=== PATIENT | male | born 1965 | race African-American/Black ===

== ENCOUNTER 2019-11-25 16:25 | Emergency (ER) | payer SELFPAY ==
--- NOTE | 2019-11-25 16:49 | ER ---
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 States, "I woke ca1 up at 0200 today and it has been like this". Denies pain. Denies injury. Coronavirus screen: Client denies travel out of the [place] in the last 14 days. At this time, the client does not indicate any symptoms associated with coronavirus-19. Ebola Screen: Patient negative for fever greater than or equal to 101.5 degrees Fahrenheit, and additional compatible Ebola Virus Disease symptoms Patient denies exposure to infectious person. Patient denies travel to an Ebola-affected area in the 21 days before illness onset. No symptoms or risks identified at this time. Initial Sepsis Screen: Does the patient meet any 2 criteria? No. Patient's initial sepsis screen is negative. Does the patient have a suspected source of infection? No. Patient's initial sepsis screen is negative. Risk Assessment: Do you want to hurt yourself or someone else? Patient reports no desire to harm self or others. Onset of symptoms was November 25, 2019 at 02:00. 16:38 Method Of Arrival: Ambulatory ca1 16:38 Acuity: HUANG 4 ca1 Triage Assessment: 16:41 General: Appears in no apparent distress. comfortable, Behavior is calm, cooperative, ca1 appropriate for age. Pain: Denies pain. EENT: No signs and/or symptoms were reported regarding the EENT system. Neuro: Level of Consciousness is awake, alert, obeys commands. Derm: Skin is intact, is healthy with good turgor, Skin is pink, warm \\T\\ dry. Musculoskeletal: Circulation, motion, and sensation intact. Capillary refill < 3 seconds, Range of motion: intact in all extremities. Historical: - Allergies: 16:41 No Known Allergies; ca1 - Home Meds: 16:41 None [Active]; ca1 - PMHx: 16:41 None; ca1 - PSHx: 16:41 None; ca1 - Immunization history:: Adult Immunizations up to date. - Social history:: Smoking status: Patient denies any tobacco usage or history of. Screenin:42 Abuse screen: Denies threats or abuse. Denies injuries from another. Nutritional ca1 screening: No deficits noted. Tuberculosis screening: No symptoms or risk factors identified. Fall Risk None identified. Assessment: 16:42 Reassessment: See triage assessment. ca1 Vital Signs: 16:38 BP 149 / 77; Pulse 60; Resp 17 S; Temp 98.4(O); Pulse Ox 100% on R/A; Weight 88.45 kg ca1 (R); Height 6 ft. 7 in. (200.66 cm) (R); 16:38 Body Mass Index 21.97 (88.45 kg, 200.66 cm) ca1 ED Course: 16:28 Patient arrived in ED. mr 16:37 [facility]. snw 16:37 Donald Richter MD is Attending Physician. snw 16:40 Triage completed. ca1 16:41 Arm band placed on right wrist. ca1 16:42 Patient has correct armband on for positive identification. Bed in low position. Call ca1 light in reach. Side rails up X 1. Pulse ox on. NIBP on. 16:48 Chelsy Mota, RN is Primary Nurse. ca1 16:54 Patient did not have IV access during this emergency room visit. Velcro wrist splint ca1 applied to right wrist. 16:55 No provider procedures requiring assistance completed. ca1 Administered Medications: No medications were administered Outcome: 16:48 Discharge ordered by . snw 16:59 Discharged to home ambulatory. ca1 16:59 Condition: stable 16:59 Discharge instructions given to patient, Instructed on discharge instructions, follow up and referral plans. medication usage, Demonstrated understanding of instructions, follow-up care, medications, Prescriptions given X 1. 16:59 Patient left the ED. ca1 Signatures: Radha Barrett FNP-C BLANKET MAKER-Csnw Deanna Layne mr Chelsy Mota, RN RN ca1
--- NOTE | 2019-11-25 16:49 | EDPHYS ---
Physician Documentation [facility] Name: Nj Urbina Age: 54 yrs Sex: Male : 1965 Arrival Date: 11/25/2019 Time: 16:28 Bed 14 Private MD: ED Physician Donald Richter HPI: 11/24 16:52 This 54 yrs old Black Male presents to ER via Ambulatory with complaints of Hand snw Problem. 16:52 Onset: The symptoms/episode began/occurred suddenly, this morning. Associated signs and snw symptoms: The patient has no apparent associated signs or symptoms. Modifying factors: The patient symptoms are alleviated by nothing, the patient symptoms are aggravated by nothing. The patient has not experienced similar symptoms in the past. The patient has not recently seen a physician, and does not have an established primary care provider. Historical: - Allergies: 16:41 No Known Allergies; ca1 - Home Meds: 16:41 None [Active]; ca1 - PMHx: 16:41 None; ca1 - PSHx: 16:41 None; ca1 - Immunization history:: Adult Immunizations up to date. - Social history:: Smoking status: Patient denies any tobacco usage or history of. ROS: 16:52 Constitutional: Negative for fever, chills, and weight loss, Eyes: Negative for injury, snw pain, redness, and discharge, ENT: Negative for injury, pain, and discharge, Neck: Negative for injury, pain, and swelling, Cardiovascular: Negative for chest pain, palpitations, and edema, Respiratory: Negative for shortness of breath, cough, wheezing, and pleuritic chest pain, Abdomen/GI: Negative for abdominal pain, nausea, vomiting, diarrhea, and constipation, Back: Negative for injury and pain, : Negative for injury, bleeding, discharge, and swelling, MS/Extremity: Negative for injury and deformity, pt states he cannot straighten his wrist since this am. No pain Skin: Negative for injury, rash, and discoloration, Neuro: Negative for headache, weakness, numbness, tingling, and seizure. Exam: 16:51 Constitutional: This is a well developed, well nourished patient who is awake, alert, snw and in no acute distress. Head/Face: Normocephalic, atraumatic. Eyes: Pupils equal round and reactive to light, extra-ocular motions intact. Lids and lashes normal. Conjunctiva and sclera are non-icteric and not injected. Cornea within normal limits. Periorbital areas with no swelling, redness, or edema. ENT: Nares patent. No nasal discharge, no septal abnormalities noted. Tympanic membranes are normal and external auditory canals are clear. Oropharynx with no redness, swelling, or masses, exudates, or evidence of obstruction, uvula midline. Mucous membranes moist. Neck: Trachea midline, no thyromegaly or masses palpated, and no cervical lymphadenopathy. Supple, full range of motion without nuchal rigidity, or vertebral point tenderness. No Meningismus. Chest/axilla: Normal chest wall appearance and motion. Nontender with no deformity. No lesions are appreciated. Cardiovascular: Regular rate and rhythm with a normal S1 and S2. No gallops, murmurs, or rubs. Normal PMI, no JVD. No pulse deficits. Respiratory: Lungs have equal breath sounds bilaterally, clear to auscultation and percussion. No rales, rhonchi or wheezes noted. No increased work of breathing, no retractions or nasal flaring. Abdomen/GI: Soft, non-tender, with normal bowel sounds. No distension or tympany. No guarding or rebound. No evidence of tenderness throughout. Back: No spinal tenderness. No costovertebral tenderness. Full range of motion. Skin: Warm, dry with normal turgor. Normal color with no rashes, no lesions, and no evidence of cellulitis. Neuro: Awake and alert, GCS 15, oriented to person, place, time, and situation. Cranial nerves II-XII grossly intact. Motor strength 5/5 in all extremities. Sensory grossly intact. Cerebellar exam normal. Normal gait. Psych: Awake, alert, with orientation to person, place and time. Behavior, mood, and affect are within normal limits. 16:51 Musculoskeletal/extremity: Extremities: grossly normal except: noted in the dorsal aspect of right wrist: decreased ROM, unable to extend right hand since awakening this am. Vital Signs: 16:38 BP 149 / 77; Pulse 60; Resp 17 S; Temp 98.4(O); Pulse Ox 100% on R/A; Weight 88.45 kg ca1 (R); Height 6 ft. 7 in. (200.66 cm) (R); 16:38 Body Mass Index 21.97 (88.45 kg, 200.66 cm) ca1 MDM: 16:45 Patient medically screened. snw 16:50 Data reviewed: vital signs, nurses notes. Data interpreted: Pulse oximetry: on room air snw is 100 %. Interpretation: normal. Counseling: I had a detailed discussion with the patient and/or guardian regarding: the historical points, exam findings, and any diagnostic results supporting the discharge/admit diagnosis, the need for outpatient follow up, to return to the emergency department if symptoms worsen or persist or if there are any questions or concerns that arise at home. Special discussion: I have referred the patient to see his PCP for further evaluation of high blood pressure. Based on the history and exam findings, there is no indication for further emergent testing or inpatient evaluation. I discussed with the patient/guardian the need to see the orthopedic surgeon for further evaluation of the symptoms. I discussed with the patient/guardian the need to see the primary care provider for further evaluation of the symptoms. 11/24 16:47 Order name: Wrist Splint: right; Complete Time: 16:54 snw Administered Medications: No medications were administered Disposition: 11/25/19 16:48 Discharged to Home. 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 - Condition is Stable. - Discharge Instructions: Radial Nerve Palsy, Wrist Splint. - Prescriptions for Mobic 7.5 mg Oral Tablet - take 1 tablet by ORAL route once daily take with food; 20 tablet. - Medication Reconciliation Form, Thank You Letter, Antibiotic Education, Prescription Opioid Use form. - Follow up: Emergency Department; When: As needed; Reason: Worsening of condition. Follow up: Private Physician; When: 7 - 10 days; Reason: Re-evaluation by your physician. Addendum: 11/28/2019 08:22 Co-signature as Attending Physician, Donald Richter MD I agree with the assessment and k dr plan of care. Signatures: Donald Richter MD MD kdr Waters, Shelly, REHABILITATION SPECIALIST-C REHABILITATION SPECIALIST-Csnw Chelsy Mota RN RN ca1 Corrections: (The following items were deleted from the chart) 11/24 16:59 16:48 11/25/2019 16:48 Discharged to Home. Impression: Injury of radial nerve at wrist ca1 and hand level of right arm. Condition is Stable. Forms are Medication Reconciliation Form, Thank You Letter, Antibiotic Education, Prescription Opioid Use. Follow up: Emergency Department; When: As needed; Reason: Worsening of condition. Follow up: Private Physician; When: 7 - 10 days; Reason: Re-evaluation by your physician. snw
[2019-11-25 17:13] VITALS: BP 149/77; TEMP 98.4; O2SAT 100
== END 2019-11-25 16:59 | disposition home or self-care (01) ==
LOC: ER 16:25
DX: S64.21XA Injury of radial nerve at wrist and hand level of right arm, initial encounter (principal); X58.XXXA Exposure to other specified factors, initial encounter; Y93.9 Activity, unspecified; Y92.9 Unspecified place or not applicable; Y99.9 Unspecified external cause status
CPT/HCPCS: 99283

== ENCOUNTER 2020-02-17 03:20 | Emergency (ER) | payer SELFPAY ==
[2020-02-17] MEDS ORDERED: LIDOCAINE 1% MPF 30 ML VIAL ONE (03:39)
[2020-02-17] MEDS ORDERED: NA CHLORIDE 0.9% 0 ML ONE ×2 (03:41→03:50)
[2020-02-17] MEDS ORDERED: LIDOCAINE 1% W/EPI 1:100,000 MDV 50 ML VIAL ONE (03:41)
[2020-02-17 03:46] LABS: Absolute Lymphocytes (CBC) 1.4 K/uL (0.7-4.9); Basophils % 1.7 % (0-1.3); Hematocrit 35.1 % (39.6-49.0); Lymphocytes % 37.8 % (15.3-44.8); RBC Red Blood Cell Count 3.94 M/uL (4.33-5.43)
[2020-02-17] MEDS ORDERED: CEFAZOLIN/SWI 1gm 2 GM/20 ML SYR ONE (03:50)
[2020-02-17] MEDS ORDERED: THIAMINE 200 MG/2 ML INJ ONE (03:50)
[2020-02-17 03:51] LABS: Protime INR 0.91
[2020-02-17] MEDS ORDERED: TETANUS & DIPHTHERIA TOX,ADULT 0.5 ML VIAL ONE (03:51)
[2020-02-17 04:06] LABS: ALT/SGPT 22 U/L (12-78); AST/SGOT 35 U/L (15-37); Albumin 3.6 g/dL (3.4-5.0); Alkaline Phosphatase 68 U/L (45-117); BUN Blood Urea Nitrogen 9 mg/dL (7-18); Bicarbonate 25 mmol/L (21-32); Bilirubin Direct 0.1 mg/dL (0-0.2); Bilirubin Total 0.2 mg/dL (0.2-1.0); Glucose Level 96 mg/dL (74-106); Magnesium 2.3 mg/dL (1.8-2.4); NT PRO-BNP 189 pg/mL (<125); Potassium 3.9 mmol/L (3.5-5.1); Protein, Total 7.7 g/dL (6.4-8.2); Sodium Level 138 mmol/L (136-145); Troponin (Emerg Dept Use Only) < 0.02 ng/mL (0.0-0.045)
[2020-02-17] MEDS ORDERED: NA CHLORIDE 0.9% 2,000 ML ONE (04:20)
--- NOTE | 2020-02-17 05:59 | ER ---
Nurse's Notes [facility] Name: Nj Urbina Age: 54 yrs Sex: Male : 1965 Arrival Date: 02/17/2020 Time: 03:23 Bed 16 Private MD: Diagnosis: Fall due to bumping against object;Laceration without foreign body of other part of head-scalp, ear, forehead, right lower eyelid;Hypotension-resolved;Alcohol abuse with intoxication;Acute sinusitis Presentation: 02/16 03:33 Coronavirus screen: Client denies travel out of the [place] in the last 14 days. At this sg time, the client does not indicate any symptoms associated with coronavirus-19. Ebola Screen: Patient negative for fever greater than or equal to 101.5 degrees Fahrenheit, and additional compatible Ebola Virus Disease symptoms Patient denies exposure to infectious person. Patient denies travel to an Ebola-affected area in the 21 days before illness onset. No symptoms or risks identified at this time. Complicating Factors: laceration and injury to scalp and face. Initial Sepsis Screen: Does the patient meet any 2 criteria? No. Patient's initial sepsis screen is negative. Does the patient have a suspected source of infection? No. Patient's initial sepsis screen is negative. Risk Assessment: Do you want to hurt yourself or someone else? Patient reports no desire to harm self or others. Onset of symptoms was February 17, 2020. Care prior to arrival: None. Transition of care: patient was not received from another setting of care. 03:33 Acuity: HUANG 2 sg 03:33 Method Of Arrival: Wheelchair sg 03:33 Chief complaint: Patient states: while I am going up on a stairs I fell down and hit my [facility] head. 03:33 Care prior to arrival: None. rr5 03:35 Mechanism of Injury: Fall down steps. Trauma event details: Injury occurred in the [address], Injury occurred: at home. Injury occurred: February 17, 2020. Trauma Activation: Alert Physician: ED Physician; Name: ; Notified At: 03:35; Arrived At: 03:35 Physician: General Surgeon; Name: ; Notified At: 03:45; Arrived At: Physician: Radiology; Name: rhea; Notified At: 03:45; Arrived At: 03:47 Physician: Respiratory; Name: ; Notified At: 03:45; Arrived At: Physician: Lab; Name: ; Notified At: 03:45; Arrived At: Historical: - Allergies: 03:24 No Known Allergies; sg - Home Meds: 03:25 None [Active]; sg - PMHx: 03:25 None; sg - PSHx: 03:24 None; sg - Immunization history:: Adult Immunizations not up to date. - Social history:: Smoking status: Patient denies any tobacco usage or history of. - Immunization history: Last tetanus immunization: unknown. - Family history:: not pertinent. Screenin:30 Abuse screen: Denies threats or abuse. Denies injuries from another. Nutritional rr5 screening: No deficits noted. Tuberculosis screening: No symptoms or risk factors identified. Fall Risk Fall in past 12 months (25 points). IV access (20 points). Ambulatory Aid- None/Bed Rest/Nurse Assist (0 pts). Gait- Impaired (20 pts.). Mental Status- Oriented to own ability (0 pts). Total Romero Fall Scale indicates High Risk Score (45 or more points). Fall prevention measures have been instituted. Side Rails Up X 2 Placed Close to Nursing Station Frequent Obs/Assessments Occuring As available patient and family educated on Fall Prevention Program and Strategies. Primary Survey: 03:30 Uncontrolled hemorrhage is observed, assessment has been re-ordered to <C> ABC. A: The rr5 patient is alert. Airway: patent, No supplemental oxygen in use on arrival. Oral cavity: clear, gag reflex present, Trachea midline. 03:30 Breathing/Chest: Respiratory pattern: regular, Respiratory effort: spontaneous, rr5 unlabored, Breath sounds: clear, bilaterally. Chest inspection: symmetrical rise and fall of the chest. Circulation: Heart tones present. Pulses: palpable right radial artery and left radial artery. Skin color: pale, Skin temperature: warm, dry. Disability Alert. Exposure/Environment: There is evidence of uncontrolled external hemorrhage. Provider notified immediately. Methods to control bleeding applied. Obvious injury(ies) are noted at this time: lacerated wound at right frontal re approximate 2 cm, right ear lacerated wound approximate 1 cm, back of the ear approximate 1 cm, right side parietal approximate 3 cm, occipital area approximate 3cm, right lower eyelid lacerated wound approximate 0.5cm. 04:30 Reassessment Airway Airway Patent Breathing/Chest Respiratory pattern Regular rr5 Respiratory effort Spontaneous Unlabored Breath sounds Clear Chest inspection Symmetrical Circulation Heart tones Present Pulses Palpable Color [place] Disability Alert. Secondary Survey: 04:00 HEENT: Head Other multiple lacerated wound noted Face No injury/deformity Eyes: Other rr5 lacerated wound right lower eyelid Ears: clear bilaterally. Nose: clear to bilateral nares. Throat: is clear with gag reflex present. Gastrointestinal: Abdomen is soft. : No signs and/or symptoms were reported regarding the genitourinary system. Musculoskeletal: Capillary refill < 3 seconds. Assessment: 03:30 General: Appears in no apparent distress. uncomfortable, Behavior is drowsy, Smells of rr5 alcohol. 03:30 Pain: Complains of pain in head Pain Quality of pain is described as aching, Pain began rr5 suddenly, Is continuous. Neuro: Level of Consciousness is awake, alert, obeys commands, Oriented to person, place, time. EENT: multiple lacerated wound noted on the head, right ear and lower eyelid. Cardiovascular: Capillary refill < 3 seconds Patient's skin is warm and dry. Respiratory: Airway is patent Respiratory effort is even, unlabored, Respiratory pattern is regular, symmetrical. GI: No signs and/or symptoms were reported involving the gastrointestinal system. : No signs and/or symptoms were reported regarding the genitourinary system. Derm: Skin is pink, warm \T\ dry. Skin temperature is warm Wound noted multiple lacerated wound on the head right ear and right lower eyelid. Musculoskeletal: Capillary refill < 3 seconds. 03:30 Injury Description: Laceration sustained to head scalp, right ear and right eye is rr5 clean, bleeding moderately. 04:30 Reassessment: Patient appears in no apparent distress at this time. Patient is alert, rr5 oriented x 3, equal unlabored respirations, skin warm/dry/pink. send to CT scan. 05:07 Reassessment: [id number] bonita (mother). rr5 05:50 Reassessment: Patient appears in no apparent distress at this time. Patient is alert, rr5 oriented x 3, equal unlabored respirations, skin warm/dry/pink. awaiting for CT results. 06:25 Reassessment: Patient appears in no apparent distress at this time. Patient is alert, rr5 oriented x 3, equal unlabored respirations, skin warm/dry/pink. patient for discharge, mother of the patient informed for the trasnport. 06:50 Reassessment: Patient appears in no apparent distress at this time. Patient is alert, rr5 oriented x 3, equal unlabored respirations, skin warm/dry/pink. discharge instruction given and explained to the mother without complains made. Vital Signs: 03:33 BP 86 / 59; Pulse 80; Resp 16; Temp 97.2(O); Pulse Ox 99% on R/A; Weight 86.18 kg (R); rr5 Height 6 ft. 7 in. (200.66 cm) (R); Pain 6/10; 03:59 BP 112 / 73; Pulse 86; Resp 16; Pulse Ox 99% ; rr5 04:15 BP 126 / 85; Pulse 89; Resp 17; Pulse Ox 98% ; rr5 04:30 BP 134 / 85; Pulse 80; Resp 19; Pulse Ox 99% ; rr5 05:05 BP 137 / 67; Pulse 85; Resp 16; Pulse Ox 100% ; rr5 06:20 BP 123 / 73 Supine; Pulse 80; Resp 16; Pulse Ox 98% ; rr5 06:22 BP 120 / 64 Sitting; Pulse 75; Resp 19; Pulse Ox 99% on R/A; rr5 06:25 BP 121 / 63 Standing; Pulse 75; Resp 19; Pulse Ox 99% ; rr5 06:50 BP 126 / 89; Pulse 70; Resp 16; Temp 98; Pulse Ox 99% ; rr5 03:33 Body Mass Index 21.40 (86.18 kg, 200.66 cm) rr5 [place] Coma Score: 03:30 Eye Response: spontaneous(4). Verbal Response: oriented(5). Motor Response: obeys rr5 commands(6). Total: 15. 03:59 Eye Response: spontaneous(4). Verbal Response: oriented(5). Motor Response: obeys rr5 commands(6). Total: 15. 04:30 Eye Response: spontaneous(4). Verbal Response: oriented(5). Motor Response: obeys rr5 commands(6). Total: 15. 06:25 Eye Response: spontaneous(4). Verbal Response: oriented(5). Motor Response: obeys rr5 commands(6). Total: 15. 06:50 Eye Response: spontaneous(4). Verbal Response: oriented(5). Motor Response: obeys rr5 commands(6). Total: 15. Trauma Score (Adult): 03:30 Eye Response: spontaneous(1); Verbal Response: oriented(1); Motor Response: obeys rr5 commands(2); Systolic BP: 76 to 89 mm Hg(3); Respiratory Rate: 10 to 29 per min(4); [place] Score: 15; Trauma Score: 11 03:59 Eye Response: spontaneous(1); Verbal Response: oriented(1); Motor Response: obeys rr5 commands(2); Systolic BP: > 89 mm Hg(4); Respiratory Rate: 10 to 29 per min(4); [place] Score: 15; Trauma Score: 12 04:30 Eye Response: spontaneous(1); Verbal Response: oriented(1); Motor Response: obeys rr5 commands(2); Systolic BP: > 89 mm Hg(4); Respiratory Rate: 10 to 29 per min(4); [place] Score: 15; Trauma Score: 12 06:25 Eye Response: spontaneous(1); Verbal Response: oriented(1); Motor Response: obeys rr5 commands(2); Systolic BP: > 89 mm Hg(4); Respiratory Rate: 10 to 29 per min(4); [place] Score: 15; Trauma Score: 12 06:50 Eye Response: spontaneous(1); Verbal Response: oriented(1); Motor Response: obeys rr5 commands(2); Systolic BP: > 89 mm Hg(4); Respiratory Rate: 10 to 29 per min(4); [place] Score: 15; Trauma Score: 12 ED Course: 03:23 Patient arrived in ED. sg 03:33 Arm band placed on. sg 03:33 Inserted saline lock: 18 gauge in left antecubital area, using aseptic technique. Blood rr5 collected. 03:34 Triage completed. sg 03:35 Patient has correct armband on for positive identification. Placed in gown. Bed in low rr5 position. Call light in reach. Side rails up X2. clinical research monitor on. Pulse ox on. NIBP on. 03:35 Patient maintains SpO2 saturation greater than 95% on room air. Thermoregulation: warm rr5 blanket given to patient. 03:44 Silvio Ruff MD is Attending Physician. cande 03:50 XRAY Chest (1 view) In Process Unspecified. EDMS 03:55 Rigoberto Esteves, RN is Primary Nurse. rr5 03:55 Assist provider with laceration repair on head, right parietal area, occipital area, rr5 right frontal area, right side of the back of head, right occipital area and right ear that was using suture and staple. Set up tray. Performed by Silvio Ruff MD Dressed with Neosporin, Patient tolerated well. 05:26 CT Traumagram (Head C Spine CAP W Con) In Process Unspecified. EDMS 05:26 CT Facial Bones W/O Con In Process Unspecified. EDMS 05:57 Jai Alegria MD is Referral Physician. cande 06:03 Kwaku Hernadez MD is Referral Physician. cande 06:51 IV discontinued, intact, bleeding controlled, No redness/swelling at site. Pressure rr5 dressing applied. Administered Medications: 03:40 Dru grams of (Ancef 2 grams, NS 0.9% 100 ml) Route: IVPB; Infused Over: 30 mins; rr5 Site: left antecubital; 04:20 Follow up: Response: No adverse reaction; IV Status: Completed infusion; IV Intake: rr5 100ml 03:42 Drug: Thiamine 100 mg Route: IV; Rate: bolus; Site: left antecubital; ea 04:40 Follow up: Response: No adverse reaction; IV Status: Completed infusion rr5 03:42 Drug: Tetanus-Diphtheria Toxoid Adult 0.5 ml {Hospital Internship: [employer]. Exp: ea 06/24/2021. Lot #: [id number]. } Route: IM; Site: left deltoid; 04:12 Follow up: Response: No adverse reaction rr5 03:43 Drug: NS 0.9% 1000 ml Route: IV; Rate: 1000 ml; Site: left antecubital; ea 05:30 Follow up: Response: No adverse reaction; IV Status: Completed infusion; IV Intake: rr5 1000ml 03:43 Drug: NS 0.9% 1000 ml Route: IV; Rate: 1 bolus; Site: left antecubital; ea 05:10 Follow up: Response: No adverse reaction; IV Status: Completed infusion; IV Intake: rr5 1000ml 03:44 Drug: Lidocaine-Epinephrine -1%: (1:100,000) 1 vials {Note: administered by provider.} ea Volume: 20 ml; Route: Infiltration; 05:00 Follow up: Response: No adverse reaction rr5 05:46 Not Given (Hemodynamic Parameters): NS 0.9% 1000 ml IV at 1 bolus Per protocol; 1000 mL rr5 bolus 06:17 Drug: Tobrex 0.3 % 1 application Route: Ophthalmic; Site: right eye; rr5 06:51 Follow up: Response: No adverse reaction rr5 Intake: 04:20 IV: 100ml; Total: 100ml. rr5 05:10 IV: 1000ml; Total: 1100ml. rr5 05:30 IV: 1000ml; Total: 2100ml. rr5 06:30 PO: 0ml; Total: 2100ml. rr5 Outcome: 05:59 Discharge ordered by . cande 06:28 Patient's length of stay in the Emergency Department was greater than 2 hours. awaiting rr5 for ride homePatient's length of stay extended due to 06:51 Discharged to home via wheelchair, with family. rr5 06:51 Condition: stable 06:51 Discharge instructions given to family, Instructed on discharge instructions, follow up and referral plans. medication usage, Demonstrated understanding of instructions, follow-up care, medications, Prescriptions given X 3. 06:51 Patient left the ED. rr5 Signatures: Dispatcher [employer] EDMS Chema Whitney RN RN sg Anderson, Corey, MD MD cha Antunez, Elena, RN RN ea Roque, Raymond, RN RN rr5 Corrections: (The following items were deleted from the chart) 03:45 03:33 BP 86 / 59; Pulse 80bpm; Resp 16bpm; Pulse Ox 99% RA; Temp 97.2F Oral; 64.41 kg; sg Height 5 ft. 10 in.; BMI: 20.3; Pain 6/10; sg 04:08 03:30 NS 0.9% 1000 ml IV at 1 bolus in left antecubital rr5 rr5 05:05 03:33 BP 86 / 59; Pulse 80bpm; Resp 16bpm; Pulse Ox 99% RA; Temp 97.2F Oral; 101.6 kg rr5 Reported; Height 6 ft. 7 in. Reported; BMI: 25.2; Pain 6/10; sg
--- NOTE | 2020-02-17 05:59 | EDPHYS ---
Physician Documentation [facility] Name: Nj Urbina Age: 54 yrs Sex: Male : 1965 Arrival Date: 02/17/2020 Time: 03:23 Bed 16 Private MD: ED Physician Silvio Ruff HPI: 02/16 03:47 This 54 yrs old Black Male presents to ER via Wheelchair with complaints of Laceration cande To Head. 03:47 The patient has a laceration related to: falling occurred at home. The laceration(s) cande is(are) located on the face. Onset: The symptoms/episode began/occurred just prior to arrival. Associated signs and symptoms: The patient has no apparent associated signs or symptoms. Historical: - Allergies: 03:24 No Known Allergies; sg - Home Meds: 03:25 None [Active]; sg - PMHx: 03:25 None; sg - PSHx: 03:24 None; sg - Immunization history:: Adult Immunizations not up to date. - Social history:: Smoking status: Patient denies any tobacco usage or history of. - Immunization history: Last tetanus immunization: unknown. - Family history:: not pertinent. ROS: 03:47 Constitutional: Negative for fever, chills, and weight loss, ENT: Negative for injury, cande pain, and discharge, Neck: Negative for injury, pain, and swelling, Cardiovascular: Negative for chest pain, palpitations, and edema, Respiratory: Negative for shortness of breath, cough, wheezing, and pleuritic chest pain, Abdomen/GI: Negative for abdominal pain, nausea, vomiting, diarrhea, and constipation, Back: Negative for injury and pain, : Negative for injury, bleeding, discharge, and swelling, MS/Extremity: Negative for injury and deformity, Psych: Negative for depression, anxiety, suicide ideation, homicidal ideation, and hallucinations, Allergy/Immunology: Negative for hives, rash, and allergies, Endocrine: Negative for neck swelling, polydipsia, polyuria, polyphagia, and marked weight changes. 03:47 Eyes: Positive for injury or acute deformity, of the right lower eyelid. 03:47 ENT: Positive for 03:47 Skin: Positive for laceration(s). 03:47 Neuro: Positive for altered mental status, dizziness, headache. Exam: 03:47 Constitutional: This is a well developed, well nourished patient who is awake, alert, cande and in no acute distress. Head/Face: Normocephalic, atraumatic. ENT: Nares patent. No nasal discharge, no septal abnormalities noted. Tympanic membranes are normal and external auditory canals are clear. Oropharynx with no redness, swelling, or masses, exudates, or evidence of obstruction, uvula midline. Mucous membranes moist. Neck: Trachea midline, no thyromegaly or masses palpated, and no cervical lymphadenopathy. Supple, full range of motion without nuchal rigidity, or vertebral point tenderness. No Meningismus. Chest/axilla: Normal chest wall appearance and motion. Nontender with no deformity. No lesions are appreciated. Cardiovascular: Regular rate and rhythm with a normal S1 and S2. No gallops, murmurs, or rubs. Normal PMI, no JVD. No pulse deficits. Respiratory: Lungs have equal breath sounds bilaterally, clear to auscultation and percussion. No rales, rhonchi or wheezes noted. No increased work of breathing, no retractions or nasal flaring. Abdomen/GI: Soft, non-tender, with normal bowel sounds. No distension or tympany. No guarding or rebound. No evidence of tenderness throughout. Back: No spinal tenderness. No costovertebral tenderness. Full range of motion. Male : Normal genitalia with no discharge or lesions. MS/ Extremity: Pulses equal, no cyanosis. Neurovascular intact. Full, normal range of motion. Psych: Awake, alert, with orientation to person, place and time. Behavior, mood, and affect are within normal limits. 03:47 Eyes: Pupils: no acute changes, equal, round, and reactive to light and accomodation, Extraocular movements: intact throughout, Conjunctiva: injected, Corneas: are normal, no acute changes, Lids and lashes: laceration, that is superficial, approximately 3 mm(s). 06:28 ECG was reviewed by the Attending Physician. [facility] Vital Signs: 03:33 BP 86 / 59; Pulse 80; Resp 16; Temp 97.2(O); Pulse Ox 99% on R/A; Weight 86.18 kg (R); rr5 Height 6 ft. 7 in. (200.66 cm) (R); Pain 6/10; 03:59 BP 112 / 73; Pulse 86; Resp 16; Pulse Ox 99% ; rr5 04:15 BP 126 / 85; Pulse 89; Resp 17; Pulse Ox 98% ; rr5 04:30 BP 134 / 85; Pulse 80; Resp 19; Pulse Ox 99% ; rr5 05:05 BP 137 / 67; Pulse 85; Resp 16; Pulse Ox 100% ; rr5 06:20 BP 123 / 73 Supine; Pulse 80; Resp 16; Pulse Ox 98% ; rr5 06:22 BP 120 / 64 Sitting; Pulse 75; Resp 19; Pulse Ox 99% on R/A; rr5 06:25 BP 121 / 63 Standing; Pulse 75; Resp 19; Pulse Ox 99% ; rr5 06:50 BP 126 / 89; Pulse 70; Resp 16; Temp 98; Pulse Ox 99% ; rr5 03:33 Body Mass Index 21.40 (86.18 kg, 200.66 cm) rr5 Yolette Coma Score: 03:30 Eye Response: spontaneous(4). Verbal Response: oriented(5). Motor Response: obeys rr5 commands(6). Total: 15. 03:59 Eye Response: spontaneous(4). Verbal Response: oriented(5). Motor Response: obeys rr5 commands(6). Total: 15. 04:30 Eye Response: spontaneous(4). Verbal Response: oriented(5). Motor Response: obeys rr5 commands(6). Total: 15. 06:25 Eye Response: spontaneous(4). Verbal Response: oriented(5). Motor Response: obeys rr5 commands(6). Total: 15. 06:50 Eye Response: spontaneous(4). Verbal Response: oriented(5). Motor Response: obeys rr5 commands(6). Total: 15. Trauma Score (Adult): 03:30 Eye Response: spontaneous(1); Verbal Response: oriented(1); Motor Response: obeys rr5 commands(2); Systolic BP: 76 to 89 mm Hg(3); Respiratory Rate: 10 to 29 per min(4); Yolette Score: 15; Trauma Score: 11 03:59 Eye Response: spontaneous(1); Verbal Response: oriented(1); Motor Response: obeys rr5 commands(2); Systolic BP: > 89 mm Hg(4); Respiratory Rate: 10 to 29 per min(4); Yolette Score: 15; Trauma Score: 12 04:30 Eye Response: spontaneous(1); Verbal Response: oriented(1); Motor Response: obeys rr5 commands(2); Systolic BP: > 89 mm Hg(4); Respiratory Rate: 10 to 29 per min(4); [place] Score: 15; Trauma Score: 12 06:25 Eye Response: spontaneous(1); Verbal Response: oriented(1); Motor Response: obeys rr5 commands(2); Systolic BP: > 89 mm Hg(4); Respiratory Rate: 10 to 29 per min(4); Yolette Score: 15; Trauma Score: 12 06:50 Eye Response: spontaneous(1); Verbal Response: oriented(1); Motor Response: obeys rr5 commands(2); Systolic BP: > 89 mm Hg(4); Respiratory Rate: 10 to 29 per min(4); Yolette Score: 15; Trauma Score: 12 Laceration: 03:47 Wound Repair of 2cm ( 0.8in ) subcutaneous laceration to forehead. Irregularly shaped.. cande Distal neuro/vascular/tendon intact. Anesthesia: Local anesthetic administered with 8 mls of 1% lidocaine w/ Epi. Wound prep: Moderate cleansing with betadine by me. Skin closed with 5 5-0 Prolene using interrupted sutures and sterile technique. Dressed with Neosporin. Patient tolerated well. 04:32 Wound Repair of 1cm ( 0.4in ) subcutaneous laceration to right ear. Linear shaped.. cande Distal neuro/vascular/tendon intact. Anesthesia: Local anesthetic administered with 3 mls of 1% lidocaine w/ Epi. Wound prep: Simple cleansing with betadine by me. Skin closed with 2 5-0 Prolene using interrupted sutures and sterile technique. Dressed with Neosporin. Patient tolerated well. 04:32 Wound Repair of 3cm ( 1.2in ) subcutaneous laceration to left parietal area, right cande parietal area and left ear. Irregularly shaped.. Distal neuro/vascular/tendon intact. Anesthesia: Local anesthetic administered with 5 mls of 1% lidocaine w/ Epi. Wound prep: Simple cleansing with betadine by me. Skin closed with 5 1-0 Robert using staple gun. Dressed with pressure dressing. Patient tolerated well. 04:35 Wound Repair of 3cm ( 1.2in ) subcutaneous laceration to top of head. Irregularly cande shaped.. Distal neuro/vascular/tendon intact. Anesthesia: Local anesthetic administered with 5 mls of 1% lidocaine w/ Epi. Wound prep: Moderate cleansing by me. Skin closed with 5 robert [place] using staple gun. Dressed with pressure dressing. Patient tolerated well. MDM: 03:44 Patient medically screened. cande 03:47 Differential diagnosis: superficial laceration, vascular injury. Data reviewed: vital cande signs, nurses notes, lab test result(s), EKG, radiologic studies. Data interpreted: retail office associate: rate is 80 beats/min, rhythm is regular, Pulse oximetry: on room air is 99 %. Test interpretation: by ED physician or midlevel provider: ECG, plain radiologic studies. Counseling: I had a detailed discussion with the patient and/or guardian regarding: the historical points, exam findings, and any diagnostic results supporting the discharge/admit diagnosis, lab results, radiology results. 02/16 03:32 Order name: Basic Metabolic Panel; Complete Time: 05: 02/16 03:32 Order name: CBC with Diff; Complete Time: 05:09 02/16 03:32 Order name: LFT's; Complete Time: 05:09 02/16 03:32 Order name: Magnesium; Complete Time: 05: 02/16 03:32 Order name: NT PRO-BNP; Complete Time: 05:09 02/16 03:32 Order name: PT-INR; Complete Time: 05:09 02/16 03:32 Order name: Troponin (emerg Dept Use Only); Complete Time: 05: 02/16 03:36 Order name: ETOH Level; Complete Time: 05:09 02/16 03:36 Order name: Salicylate; Complete Time: 05:09 02/16 03:36 Order name: TS; Complete Time: 05:09 02/16 03:32 Order name: XRAY Chest (1 view) 02/16 03:32 Order name: EKG; Complete Time: 03:33 02/16 03:32 Order name: Cardiac monitoring; Complete Time: 04:01 02/16 03:32 Order name: EKG - Nurse/Tech; Complete Time: 04:01 02/16 03:32 Order name: IV Saline Lock; Complete Time: 03:43 02/16 03:32 Order name: Labs collected and sent; Complete Time: 03:43 02/16 03:46 Order name: CT Traumagram (Head C Spine CAP W Con) [facility] 02/16 03:46 Order name: CT Facial Bones W/O Con [facility] 02/16 03:32 Order name: O2 Per Protocol; Complete Time: 03:43 02/16 03:32 Order name: O2 Sat Monitoring; Complete Time: 03:43 02/16 03:38 Order name: Dressing - Wound; Complete Time: 03:42 02/16 03:38 Order name: Gloves, Sterile; Complete Time: 03:42 02/16 03:38 Order name: Setup Suture Tray; Complete Time: 03:43 02/16 06:39 Order name: Orthostatics; Complete Time: 06:39 rr5 EC:28 Rate is 80 beats/min. Rhythm is regular. QRS [place] is Normal. ME interval is normal. QRS cande interval is normal. QT interval is normal. No Q waves. T waves are Normal. No ST changes noted. Clinical impression: Normal ECG and No evidence of ischemia. Interpreted by me. Reviewed by me. Administered Medications: 03:40 Dru grams of (Ancef 2 grams, NS 0.9% 100 ml) Route: IVPB; Infused Over: 30 mins; rr5 Site: left antecubital; 04:20 Follow up: Response: No adverse reaction; IV Status: Completed infusion; IV Intake: rr5 100ml 03:42 Drug: Thiamine 100 mg Route: IV; Rate: bolus; Site: left antecubital; ea 04:40 Follow up: Response: No adverse reaction; IV Status: Completed infusion rr5 03:42 Drug: Tetanus-Diphtheria Toxoid Adult 0.5 ml {Computer Systems Security Analyst: [employer]. Exp: ea 06/24/2021. Lot #: [id number]. } Route: IM; Site: left deltoid; 04:12 Follow up: Response: No adverse reaction rr5 03:43 Drug: NS 0.9% 1000 ml Route: IV; Rate: 1000 ml; Site: left antecubital; ea 05:30 Follow up: Response: No adverse reaction; IV Status: Completed infusion; IV Intake: rr5 1000ml 03:43 Drug: NS 0.9% 1000 ml Route: IV; Rate: 1 bolus; Site: left antecubital; ea 05:10 Follow up: Response: No adverse reaction; IV Status: Completed infusion; IV Intake: rr5 1000ml 03:44 Drug: Lidocaine-Epinephrine -1%: (1:100,000) 1 vials {Note: administered by provider.} ea Volume: 20 ml; Route: Infiltration; 05:00 Follow up: Response: No adverse reaction rr5 05:46 Not Given (Hemodynamic Parameters): NS 0.9% 1000 ml IV at 1 bolus Per protocol; 1000 mL rr5 bolus 06:17 Drug: Tobrex 0.3 % 1 application Route: Ophthalmic; Site: right eye; rr5 06:51 Follow up: Response: No adverse reaction rr5 Disposition: 02/17/20 05:59 Discharged to Home. Impression: Fall due to bumping against object, Laceration without foreign body of other part of head - scalp, ear, forehead, right lower eyelid, Hypotension - resolved, Alcohol abuse with intoxication, Acute sinusitis. - Condition is Stable. - Discharge Instructions: Alcohol Intoxication, Head Injury, Adult, Facial Laceration, Sinusitis, Adult, Sinusitis, Adult, [id number], Alcohol Intoxication, [id number], Alcohol Abuse and Nutrition, Facial Laceration, Gurn-tm-Nulj, Fall Prevention in the Home, Kiel-ta-Dkti, Head Injury, Adult, [id number]-br-Xwfg. - Prescriptions for Keflex 500 mg Oral Capsule - take 1 capsule by ORAL route every 6 hours for 10 days; 40 capsule. Folic Acid 1 mg Oral Tablet - take 1 tablet by ORAL route once daily; 30 tablet. Tobrex 0.3 % Ophthalmic ointment - apply 1 inch ribbon by OPHTHALMIC route 3 times per day; 3.5 gram. - Medication Reconciliation Form, Thank You Letter, Antibiotic Education, Prescription Opioid Use form. - Follow up: Private Physician; When: 2 - 3 days; Reason: Recheck today's complaints, Continuance of care, Re-evaluation by your physician. Follow up: Jai Alegria MD; When: 2 - 3 days; Reason: Recheck today's complaints, Re-evaluation by your physician. Follow up: Kwaku Hernadez MD; When: 2 - 3 days; Reason: Recheck today's complaints, Continuance of care, Re-evaluation by your physician. - Problem is new. - Symptoms have improved. Signatures: Dispatcher [employer] EDMO Chema Whitney, RN Silvio Mercado MD MD cha Antunez, Elena RN Rigoberto Jim ea RN RN rr5 Corrections: (The following items were deleted from the chart) 05:37 03:33 Head C Spine MPR Wo Con+CT.RAD.BRZ ordered. EDMO EDMO 05:37 03:33 Chest Abdomen W/ Con+CT.RAD.BRZ ordered. EDMO EDMS 05:37 03:33 Maxillofacial W/Wo+CT.RAD.BRZ ordered. [facility] EDMO 06:00 05:59 02/17/2020 05:59 Discharged to Home. Impression: Fall due to bumping against cande object; Laceration without foreign body of other part of head - scalp, ear, forehead; Hypotension - resolved; Alcohol abuse with intoxication; Acute sinusitis. Condition is Stable. Forms are Medication Reconciliation Form, Thank You Letter, Antibiotic Education, Prescription Opioid Use. Follow up: Private Physician; When: 2 - 3 days; Reason: Recheck today's complaints, Continuance of care, Re-evaluation by your physician. Follow up: Jai Alegria; When: 2 - 3 days; Reason: Recheck today's complaints, Re-evaluation by your physician. Problem is new. Symptoms have improved. [facility] 06:03 06:00 02/17/2020 05:59 Discharged to Home. Impression: Fall due to bumping against cande object; Laceration without foreign body of other part of head - scalp, ear, forehead, right lower eyelid; Hypotension - resolved; Alcohol abuse with intoxication; Acute sinusitis. Condition is Stable. Forms are Medication Reconciliation Form, Thank You Letter, Antibiotic Education, Prescription Opioid Use. Follow up: Private Physician; When: 2 - 3 days; Reason: Recheck today's complaints, Continuance of care, Re-evaluation by your physician. Follow up: Jai Alegria; When: 2 - 3 days; Reason: Recheck today's complaints, Re-evaluation by your physician. Problem is new. Symptoms have improved. [facility] 06:51 06:03 02/17/2020 05:59 Discharged to Home. Impression: Fall due to bumping against rr5 object; Laceration without foreign body of other part of head - scalp, ear, forehead, right lower eyelid; Hypotension - resolved; Alcohol abuse with intoxication; Acute sinusitis. Condition is Stable. Discharge Instructions: Alcohol Intoxication, Facial Laceration, Sinusitis, Adult, Sinusitis, Adult, Uymi-eo-Shak, Alcohol Intoxication, Pplc-rk-Biak, Alcohol Abuse and Nutrition, Facial Laceration, Xrwx-rv-Cuqc, Fall Prevention in the Home, Obzg-ds-Krbw. Prescriptions for Keflex 500 mg Oral Capsule - take 1 capsule by ORAL route every 6 hours for 10 days; 40 capsule, Folic Acid 1 mg Oral Tablet - take 1 tablet by ORAL route once daily; 30 tablet. and Forms are Medication Reconciliation Form, Thank You Letter, Antibiotic Education, Prescription Opioid Use. Follow up: Private Physician; When: 2 - 3 days; Reason: Recheck today's complaints, Continuance of care, Re-evaluation by your physician. Follow up: Jai Alegria; When: 2 - 3 days; Reason: Recheck today's complaints, Re-evaluation by your physician. Follow up: Kwaku Hernadez; When: 2 - 3 days; Reason: Recheck today's complaints, Continuance of care, Re-evaluation by your physician. Problem is new. Symptoms have improved. cande
[2020-02-17] MEDS ORDERED: TOBRAMYCIN SULF 0.3% OPTH OINT ONE (06:25)
[2020-02-17] MEDS ORDERED: TOBRADEX 0.3-0.1% OPTH OINTMENT ONE (06:26)
[2020-02-17] MEDS ORDERED: NA CHLORIDE 0.9% 1,000 ML ONE (06:37)
[2020-02-17 07:37] VITALS: O2SAT 99
[2020-02-17 07:40] VITALS: BP 126/89; TEMP 98
--- NOTE | 2020-02-17 08:53 | RAD REPORT ---
EXAM DESCRIPTION: RAD - Chest Single View - 02/17/2020 3:50 am CLINICAL HISTORY: CHEST PAIN Chest pain. COMPARISON: CHEST SINGLE VIEW dated 11/14/2010 FINDINGS: Portable technique limits examination quality. The lungs are grossly clear. The heart is normal in size. No displaced fractures. IMPRESSION: No acute intrathoracic process suspected.
--- NOTE | 2020-02-17 09:31 | RAD REPORT ---
EXAM DESCRIPTION: Facial Bones W/ Mpr CLINICAL HISTORY: The patient is 54 years old and is Male; Facial pain;Pain;Trauma TECHNIQUE: Axial computed tomography images of the face without intravenous contrast. Sagittal and coronal reformatted images were created and reviewed. This CT exam was performed using one or more of the following dose reduction techniques: automated exposure control, adjustment of the mA and/o r kV according to patient size, and/or use of iterative reconstruction technique. COMPARISON: No relevant prior studies available. FINDINGS: Bones/joints: No acute fracture visualized. Multilevel degenerative changes in the visualized cervical spine. Soft tissues: Anterior facial soft tissue swelling. Orbits: Unremarkable. Sinuses: Multifocal sinus mucosal thickening. No air-fluid levels. Mastoid air cells: No significant mastoid fluid. Dental: Bilateral maxillary dental disease. IMPRESSION: 1. No acute fracture visualized. Anterior facial soft tissue swelling. 2. Multifocal sinus mucosal thickening. 3. Additional non-emergent findings as above. Electronically signed by: Sara Long MD 02/17/2020 5:39 AM RENDERER Due to temporary technical issues with the PACS/Fluency reporting system, reports are being signed by the in house radiologist without review as a courtesy to ensure prompt reporting. The interpreting r adiologist is fully responsible for the content of the report.
--- NOTE | 2020-02-17 09:32 | RAD REPORT ---
EXAM DESCRIPTION: CT Head and Cervical Spine Without Intravenous Contrast CLINICAL HISTORY: The patient is 54 years old and is Male; Pain;Swelling TECHNIQUE: Axial computed tomography images of the head/brain and cervical spine without intravenous contrast. Sagittal and coronal reformatted images were created and reviewed. This CT exam was pe rformed using one or more of the following dose reduction techniques: automated exposure control, a djustment of the mA and/or kV according to patient size, and/or use of iterative reconstruction techn ique. COMPARISON: No relevant prior studies available. FINDINGS: BRAIN: Unremarkable. No hemorrhage. No significant white matter disease. No edema. VENTRICLES: Unremarkable. No ventriculomegaly. SKULL: No acute fracture. SINUSES: Mucoperiosteal thickening of the ethmoid air cells is noted. MASTOID AIR CELLS: Unremarkable as visualized. No mastoid effusion. VERTEBRAE: The vertebral body heights and alignment are maintained. No acute fracture. DISCS/SPINAL CANAL/NEURAL FORAMINA: The vertebral disc space narrowing with osteophyte formation from C4 through C7 is present. Significant facet arthropathy specifically on the left from C2 throug h C5 is noted. Neural foraminal narrowing is noted at multiple levels secondary to disc osteophyte co mplexes, most prominent on the left. SOFT TISSUES: Soft tissue swelling and skin iron along the frontal scalp and posterior right scalp is noted. LUNG APICES: The lung apices are clear. IMPRESSION: 1. No acute intracranial findings. 2. Mild to moderate spondylosis of the cervical spine without acute findings. EXAM DESCRIPTION: CT Chest, Abdomen and Pelvis With Intravenous Contrast CLINICAL HISTORY: The patient is 54 years old and is Male; Pain;Swelling TECHNIQUE: Axial computed tomography images of the chest, abdomen and pelvis with intravenous contra st. Sagittal and coronal reformatted images were created and reviewed. This CT exam was performed using one or more of the following dose reduction techniques: automated exposure control, adjustme nt of the mA and/or kV according to patient size, and/or use of iterative reconstruction technique. COMPARISON: No relevant prior studies available. FINDINGS: CHEST: LUNGS: The lungs are clear of focal opacity, mass, or consolidation. PLEURAL SPACE: Unremarkable. No significant effusion. No pneumothorax. HEART: No cardiomegaly. No pericardial effusion. ABDOMEN: LIVER: The liver is mildly fatty. GALLBLADDER AND BILE DUCTS: The gallbladder is physiologically distended. PANCREAS: No ductal dilation. No mass. SPLEEN: Unremarkable. ADRENALS: Unremarkable. No mass. KIDNEYS AND URETERS: Unremarkable. The kidneys enhance symmetrically. No obstructing renal or ur eteral calculus is seen. No hydronephrosis or hydroureter. No perinephric fluid or stranding. STOMACH AND BOWEL: The stomach is decompressed. The small bowel is also decompressed. Minimal st ool is noted throughout the colon. There is no mucosal thickening or evidence of bowel obstruction. N o abnormal bowel wall enhancement is seen. PELVIS: APPENDIX: No findings to suggest acute appendicitis. BLADDER: The bladder is not well distended. REPRODUCTIVE: Unremarkable as visualized. CHEST, ABDOMEN and PELVIS: INTRAPERITONEAL SPACE: Unremarkable. No significant fluid collection. No free air. BONES/JOINTS: Multilevel degenerative change of the spine is present. There is no acute fractu re of the visualized axial and appendicular skeleton. SOFT TISSUES: The soft tissues are normal. VASCULATURE: Unremarkable. No aortic aneurysm. LYMPH NODES: Prominent bilateral inguinal chain lymph nodes are present, likely reactive. IMPRESSION: No evidence of solid organ injury or traumatic bony findings on this contrasted CT of th e chest, abdomen, and pelvis. Electronically signed by: Anita Alexander MD 02/17/2020 5:43 AM INDUSTRIAL RELATIONS MANAGER Due to temporary technical issues with the PACS/Fluency reporting system, reports are being signed by the in house radiologist without review as a courtesy to ensure prompt reporting. The interpreting r adiologist is fully responsible for the content of the report.
== END 2020-02-17 06:51 | disposition home or self-care (01) ==
LOC: ER 03:20
PROC: 0HQ3XZZ Repair Left Ear Skin, External Approach (ICD-10-PCS; principal; 2020-02-17)
PROC: 08QRXZZ Repair Left Lower Eyelid, External Approach (ICD-10-PCS; 2020-02-17)
PROC: 0JQ10ZZ Repair Face Subcutaneous Tissue and Fascia, Open Approach (ICD-10-PCS; 2020-02-17)
PROC: 0JQ00ZZ Repair Scalp Subcutaneous Tissue and Fascia, Open Approach (ICD-10-PCS; 2020-02-17)
DX: S01.01XA Laceration without foreign body of scalp, initial encounter (principal); S01.81XA Laceration without foreign body of other part of head, initial encounter; S01.312A Laceration without foreign body of left ear, initial encounter; S01.111A Laceration without foreign body of right eyelid and periocular area, initial encounter; F10.129 Alcohol abuse with intoxication, unspecified; J01.90 Acute sinusitis, unspecified; W18.00XA Striking against unspecified object with subsequent fall, initial encounter; Y93.01 Activity, walking, marching and hiking; Y92.9 Unspecified place or not applicable; Z23 Encounter for immunization
CPT/HCPCS: 36415; 70450; 70486; 71045; 71260; 72125; 74177; 76377; 80048; 80076; 80320; 80329; 83735; 83880; 84484; 85025; 85610; 86850; 86900; 86901; 90471; 90714; 93005; 96361; 96365; 99285; G0390; J0690; J3411; J7030

== ENCOUNTER 2020-03-02 12:37 | Emergency (ER) | payer SELFPAY ==
--- NOTE | 2020-03-02 13:07 | ER ---
Nurse's Notes [facility] Name: Nj Urbina Age: 54 yrs Sex: Male : 1965 Arrival Date: 03/02/2020 Time: 12:43 Bed 13 Private MD: Diagnosis: Encounter for removal of sutures Presentation: 03/02 12:49 Chief complaint: Patient states: Need iron and sutures removed from head. Placed ll1 11-6. No fever since. Coronavirus screen: Client denies travel out of the [place] in the last 14 days. At this time, the client does not indicate any symptoms associated with coronavirus-19. Ebola Screen: Patient denies travel to an Ebola-affected area in the 21 days before illness onset. Initial Sepsis Screen: Does the patient meet any 2 criteria? No. Patient's initial sepsis screen is negative. Does the patient have a suspected source of infection? Yes: Skin breakdown/wound. Risk Assessment: Do you want to hurt yourself or someone else? Patient reports no desire to harm self or others. Onset of symptoms was February 17, 2020. 12:49 Method Of Arrival: Ambulatory ll1 12:49 Acuity: HUANG 4 ll1 Triage Assessment: 13:10 General: Appears in no apparent distress. Behavior is calm, cooperative, appropriate ll1 for age. Historical: - Allergies: 12:49 No Known Allergies; ll1 - PMHx: 12:49 None; ll1 - PSHx: 12:49 None; ll1 - Immunization history:: Last tetanus immunization: up to date. - Social history:: Smoking status: Patient denies any tobacco usage or history of. Screenin:50 Abuse screen: Denies threats or abuse. Nutritional screening: No deficits noted. ll1 Tuberculosis screening: No symptoms or risk factors identified. Fall Risk None identified. Total Romero Fall Scale indicates No Risk (0-24 pts). Assessment: 12:50 General: Appears in no apparent distress. Behavior is calm, cooperative, appropriate ll1 for age. Pain: Denies pain. Neuro: No deficits noted. Cardiovascular: No deficits noted. Respiratory: No deficits noted. Derm: Wound noted scalp Wound is 2 areas of iron, one area of sutures to scalp. No redness or drainage from any of the sites. No fever. Vital Signs: 12:49 BP 156 / 81; Pulse 65; Resp 16; Temp 98.6; Pulse Ox 97% on R/A; Weight 86.18 kg; Height ll1 6 ft. 7 in. (200.66 cm); Pain 0/10; 12:49 Body Mass Index 21.40 (86.18 kg, 200.66 cm) ll1 ED Course: 12:43 Patient arrived in ED. mr 12:49 Arm band placed on Patient placed in an exam room, on a stretcher. ll1 12:50 Triage completed. ll1 12:50 Patient has correct armband on for positive identification. Bed in low position. Call ll1 light in reach. Side rails up X 1. 12:50 No provider procedures requiring assistance completed. Patient did not have IV access ll1 during this emergency room visit. 12:51 Silvio Shoemaker PA is PHCP. loi 12:51 Ilia Sandoval MD is Attending Physician. cp Administered Medications: No medications were administered Outcome: 13:06 Discharge ordered by MD. cp 13:11 Patient left the ED. ll1 13:11 Discharged to home ambulatory. ll1 13:11 Condition: stable 13:11 Discharge instructions given to patient, Instructed on discharge instructions, follow up and referral plans. wound care, Demonstrated understanding of instructions, follow-up care, wound care. Signatures: Roverto Deanna mr Silvio Shoemaker PA PA cp Lewis, Lynsay, RN RN ll1
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
[2020-03-03 00:55] VITALS: BP 156/81; TEMP 98.6; O2SAT 97
== END 2020-03-02 13:11 | disposition home or self-care (01) ==
LOC: ER 12:37
DX: Z48.02 Encounter for removal of sutures (principal)
CPT/HCPCS: 99281

== ENCOUNTER 2023-02-22 01:00 | Emergency (ER) | payer SELFPAY ==
[2023-02-22] MEDS ORDERED: NA CHLORIDE 0.9% 1,000 ML ONE (01:18)
[2023-02-22 01:20] LABS: Absolute Lymphocytes (CBC) 2.1 K/uL (0.7-4.9); Lymphocytes % 41.7 % (15.3-44.8); MCV 88.1 fL (80-100); MPV 8.3 fL (7.6-11.3); Platelets 211 thou/uL (152-406)
[2023-02-22] MEDS ORDERED: TDAP (DIPHTH,PERTUSS(ACELL),TET VAC) 0.5 ML VIAL IMVAC ONE (01:26)
[2023-02-22 01:35] LABS: ALT/SGPT 22 U/L (16-61); AST/SGOT 27 U/L (15-37); Albumin 3.6 g/dL (3.4-5.0); Alkaline Phosphatase 57 U/L (45-117); BUN Blood Urea Nitrogen 12 mg/dL (7-18); Bicarbonate 25 mEq/L (21-32); Bilirubin Direct < 0.1 mg/dL (0-0.2); Bilirubin Indirect, Calculated ND mg/dL (0.2-0.8); Bilirubin Total 0.2 mg/dL (0.2-1.0); Glomerular Filtration Rate 57 ml/min (=/>90); Glucose Level 87 mg/dL (74-106); Lipase 41 U/L (13-75); Potassium 4.1 mEq/L (3.5-5.1); Protein, Total 7.6 g/dL (6.4-8.2); Sodium Level 139 mEq/L (136-145)
[2023-02-22] MEDS ORDERED: LIDOCAINE 1% MPF 5 ML VIAL ONE (04:20)
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
[2023-02-22 05:45] VITALS: BP 135/75; TEMP 98; O2SAT 99
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
--- NOTE | 2023-02-25 17:35 | EKG ---
Test Date: 2023-02-22 Test Time: 01:24:39 Behavioral Sciences Department Chair: MEASUREMENT RESULTS: Intervals: Rate: 82 OH: 144 QRSD: 96 QT: 400 QTc: 467 [place]: P: 85 OH: 144 QRS: 75 T: 86 INTERPRETIVE STATEMENTS: Normal sinus rhythm Minimal voltage criteria for LVH, may be normal variant Borderline ECG Compared to ECG 02/17/2020 03:54:52 Left ventricular hypertrophy now present Electronically Signed On 02-25-23 17:25:49 [employer]BON PAPER INTERLEAFER by Markell Schmidt
== END 2023-02-22 05:07 | disposition home or self-care (01) ==
LOC: ER 01:00
PROC: 0HQ7XZZ Repair Abdomen Skin, External Approach (ICD-10-PCS; principal; 2023-02-22)
PROC: 0HQCXZZ Repair Left Upper Arm Skin, External Approach (ICD-10-PCS; 2023-02-22)
DX: S31.112A Laceration without foreign body of abdominal wall, epigastric region without penetration into peritoneal cavity, initial encounter (principal); S41.112A Laceration without foreign body of left upper arm, initial encounter
CPT/HCPCS: 36415; 71045; 71260; 74160; 80048; 80076; 82077; 83690; 85025; 86850; 86900; 86901; 93005; 96360; 96361; 99285; J2001; J7030; Q9967

== ENCOUNTER 2023-08-08 20:54 | Emergency (ER) | payer SELFPAY ==
[2023-08-08] MEDS ORDERED: HYDROCODONE/APAP 10/325 TAB ONE (22:35)
[2023-08-08] MEDS ORDERED: IBUPROFEN 200 MG TAB PO ONE (22:35)
[2023-08-08] MEDS ORDERED: IBUPROFEN 400 MG TAB ONE (22:36)
--- NOTE | 2023-08-08 23:40 | ER ---
Nurse's Notes [facility] Name: Nj Urbina Age: 58 yrs Sex: Male : 1965 Arrival Date: 08/08/2023 Time: 20:54 Bed 2 Private MD: Diagnosis: Unspecified symptoms and signs involving the musculoskeletal system Presentation: 08/07 21:01 Chief complaint: Patient states: right buttocks pain of 8,onset 3 weeks. Patient denies pf1 any injury. 21:01 Coronavirus screen: Vaccine status: Patient reports receiving the 1st dose of the Covid pf1 vaccine. Client denies travel out of the [place] in the last 14 days. At this time, the client does not indicate any symptoms associated with coronavirus-19. Ebola Screen: Patient negative for fever greater than or equal to 101.5 degrees Fahrenheit, and additional compatible Ebola Virus Disease symptoms. Initial Sepsis Screen: Does the patient meet any 2 criteria? No. Patient's initial sepsis screen is negative. Does the patient have a suspected source of infection? No. Patient's initial sepsis screen is negative. Risk Assessment: Do you want to hurt yourself or someone else? Patient reports no desire to harm self or others. Onset of symptoms was July 18, 2023. 21:01 Method Of Arrival: Ambulatory pf1 21:01 Acuity: HUANG 4 pf1 Triage Assessment: 21:18 General: Appears in no apparent distress. comfortable, well groomed, well developed, pf1 Behavior is calm, cooperative, appropriate for age, quiet, Smells of alcohol. Pain: Complains of pain in buttocks Pain currently is 8 out of 10 on a pain scale. Musculoskeletal: Reports pain in buttocks. Historical: - Allergies: 21:17 No Known Allergies; pf1 - PMHx: 21:17 None; pf1 - PSHx: 21:17 right finger surgery; pf1 - Immunization history:: Adult Immunizations up to date, Client reports receiving the 1st dose of the Covid vaccine, Last tetanus immunization: < 5 years ago Flu vaccine is up to date. - Infectious Disease History:: Denies. - Social history:: Smoking status: Patient denies any tobacco usage or history of. Patient uses alcohol, on a daily basis. Patient/guardian denies using street drugs. Screenin:41 [facility] ED Fall Risk Assessment (Adult) History of falling in the last 3 months, cm10 including since admission No falls in past 3 months (0 pts) Confusion or Disorientation No (0 pts) Intoxicated or Sedated No (0 pts) Impaired Gait No (0 pts) Mobility Assist Device Used No (0 pt) Altered Elimination No (0 pt) Score/Fall Risk Level 0 - 2 = Low Risk Oriented to surroundings, Maintained a safe environment, Hourly rounding (assess needs \T\ fall precautionary measures) done. Abuse screen: Denies threats or abuse. Denies injuries from another. Nutritional screening: No deficits noted. Tuberculosis screening: No symptoms or risk factors identified. Assessment: 21:41 General: Appears in no apparent distress. comfortable, Behavior is calm, cooperative. cm10 Pain: Complains of pain in buttocks Pain does not radiate. Pain currently is 10 out of 10 on a pain scale. Quality of pain is described as sharp. Neuro: No deficits noted. Level of Consciousness is awake, alert, obeys commands, Oriented to person, place, time, situation, Appropriate for age. Respiratory: No deficits noted. Airway is patent Respiratory effort is even, unlabored, Respiratory pattern is regular, symmetrical. Musculoskeletal: Reports pain in buttocks. 22:42 Reassessment: Patient and/or family updated on plan of care and expected duration. Pain ha1 level reassessed. Patient is alert, oriented x 3, equal unlabored respirations, skin warm/dry/pink. going to X-ray. 23:46 Reassessment: Patient appears in no apparent distress at this time. Patient and/or jb4 family updated on plan of care and expected duration. Pain level reassessed. Patient is alert, oriented x 3, equal unlabored respirations, skin warm/dry/pink. Vital Signs: 21:01 BP 130 / 77; Pulse 81; Resp 18; Temp 97.5; Pulse Ox 98% on R/A; Weight 86.18 kg; Height pf1 6 ft. 7 in. ; Pain 8/10; 22:42 BP 142 / 74; Pulse 81; Resp 17 S; Pulse Ox 100% ; ha1 21:01 Body Mass Index 21.40 (86.18 kg, 200.66 cm) pf1 21:01 Pain Scale: Adult pf1 ED Course: 20:59 Patient arrived in ED. ra3 21:06 Silvio Ruff MD is Attending Physician. [facility] 21:17 Triage completed. pf1 21:24 Gita Alegria, RN is Primary Nurse. cm10 21:40 Arm band placed on Patient placed in an exam room, on a stretcher, on pulse oximetry. cm10 21:42 Patient has correct armband on for positive identification. Bed in low position. Call cm10 light in reach. Side rails up X 1. Provided Education on: ER process and procedures. Pulse ox on. NIBP on. 22:10 ED physician to see patient. cm10 22:54 Lumbar Spine (3 Views) XRAY In Process Unspecified. EDMS 22:[address] In Process Unspecified. EDMS 23:46 No provider procedures requiring assistance completed. Patient did not have IV access jb4 during this emergency room visit. Administered Medications: 22:42 Drug: Ibuprofen PO 600 mg PO once Route: PO; ha1 22:42 Drug: Spring PO 10 mg-325 mg 1 tabs PO once Route: PO; ha1 Medication: 21:41 VIS not applicable for this client. cm10 Outcome: 23:39 Discharge ordered by . [facility] 23:46 Discharged to home ambulatory, with friend, tiffany 23:46 Condition: stable 23:46 Discharge instructions given to patient, Instructed on discharge instructions, follow up and referral plans. medication usage, Demonstrated understanding of instructions, follow-up care, medications, Prescriptions given X 3, 23:46 Patient left the ED. jb4 Signatures: Dispatcher [employer] Silvio Arias MD MD cha Bryson, James, RN RN jb4 Altagracia Jean RN RN 1 Mayte Aparicio RN RN pf1 Gita Alegria, RN RN cm10 Lucita Roque ra3
--- NOTE | 2023-08-08 23:40 | EDPHYS ---
Physician Documentation [facility] Name: Nj Urbina Age: 58 yrs Sex: Male : 1965 Arrival Date: 08/08/2023 Time: 20:54 Bed 2 Private MD: ED Physician Silvio Ruff HPI: 08/07 22:14 This 58 yrs old Black Male presents to ER via Ambulatory with complaints of Buttock cande Injury. 22:14 The patient presents with pain that is acute, with no known mechanism of injury. The cande symptoms are located in the right low back. The pain does not radiate. The problem was sustained from unknown cause. Historical: - Allergies: 21:17 No Known Allergies; pf1 - PMHx: 21:17 None; pf1 - PSHx: 21:17 right finger surgery; pf1 - Immunization history:: Adult Immunizations up to date, Client reports receiving the 1st dose of the Covid vaccine, Last tetanus immunization: < 5 years ago Flu vaccine is up to date. - Infectious Disease History:: Denies. - Social history:: Smoking status: Patient denies any tobacco usage or history of. Patient uses alcohol, on a daily basis. Patient/guardian denies using street drugs. ROS: 22:25 Constitutional: Negative for fever, chills, and weight loss, Eyes: Negative for injury, cande pain, redness, and discharge, ENT: Negative for injury, pain, and discharge, Neck: Negative for injury, pain, and swelling, Cardiovascular: Negative for chest pain, palpitations, and edema, Respiratory: Negative for shortness of breath, cough, wheezing, and pleuritic chest pain, Abdomen/GI: Negative for abdominal pain, nausea, vomiting, diarrhea, and constipation, Back: Negative for injury and pain, : Negative for injury, bleeding, discharge, and swelling, Skin: Negative for injury, rash, and discoloration, Neuro: Negative for headache, weakness, numbness, tingling, and seizure, Psych: Negative for depression, anxiety, suicide ideation, homicidal ideation, and hallucinations, Allergy/Immunology: Negative for hives, rash, and allergies, Endocrine: Negative for neck swelling, polydipsia, polyuria, polyphagia, and marked weight changes, Hematologic/Lymphatic: Negative for swollen nodes, abnormal bleeding, and unusual bruising, 22:25 MS/extremity: Positive for pain, of the right gluteus salvador, Exam: 22:25 Constitutional: This is a well developed, well nourished patient who is awake, alert, cande and in no acute distress. Head/Face: Normocephalic, atraumatic. Eyes: Pupils equal round and reactive to light, extra-ocular motions intact. Lids and lashes normal. Conjunctiva and sclera are non-icteric and not injected. Cornea within normal limits. Periorbital areas with no swelling, redness, or edema. ENT: Nares patent. No nasal discharge, no septal abnormalities noted. Tympanic membranes are normal and external auditory canals are clear. Oropharynx with no redness, swelling, or masses, exudates, or evidence of obstruction, uvula midline. Mucous membranes moist. Neck: Trachea midline, no thyromegaly or masses palpated, and no cervical lymphadenopathy. Supple, full range of motion without nuchal rigidity, or vertebral point tenderness. No Meningismus. Chest/axilla: Normal chest wall appearance and motion. Nontender with no deformity. No lesions are appreciated. Cardiovascular: Regular rate and rhythm with a normal S1 and S2. No gallops, murmurs, or rubs. Normal PMI, no JVD. No pulse deficits. Respiratory: Lungs have equal breath sounds bilaterally, clear to auscultation and percussion. No rales, rhonchi or wheezes noted. No increased work of breathing, no retractions or nasal flaring. Abdomen/GI: Soft, non-tender, with normal bowel sounds. No distension or tympany. No guarding or rebound. No evidence of tenderness throughout. Back: No spinal tenderness. No costovertebral tenderness. Full range of motion. Male : Normal genitalia with no discharge or lesions. Skin: Warm, dry with normal turgor. Normal color with no rashes, no lesions, and no evidence of cellulitis. Neuro: Awake and alert, GCS 15, oriented to person, place, time, and situation. Cranial nerves II-XII grossly intact. Motor strength 5/5 in all extremities. Sensory grossly intact. Cerebellar exam normal. Normal gait. Psych: Awake, alert, with orientation to person, place and time. Behavior, mood, and affect are within normal limits. 22:25 Back: pain, is absent, ROM is normal, normal spinal alignment noted, CVA tenderness, is absent, vertebral tenderness, is not appreciated, muscle spasm, is not present, Straight leg raises: of both lower extremities does not illicit pain, 22:25 Musculoskeletal/extremity: Extremities: grossly normal except: noted in the right gluteus salvador: pain, ROM: intact in all extremities, full active range of motion, full passive range of motion, Circulation is intact in all extremities. Compartment Syndrome exam of affected extremity: is normal. no pain, no numbness, no tingling, no sensation deficit, no palor, no weak pulses, Weight bearing: able to fully bear weight, Tendon exam: specific tendon testing normal through active and passive range of motion DVT Exam: no swelling, no tenderness, negative Homans' sign noted on exam, no appreciated bluish discoloration, no erythema, no increased warmth, pain, Calves: are non-tender, have equal circumference, Vital Signs: 21:01 BP 130 / 77; Pulse 81; Resp 18; Temp 97.5; Pulse Ox 98% on R/A; Weight 86.18 kg; Height pf1 6 ft. 7 in. ; Pain 8/10; 22:42 BP 142 / 74; Pulse 81; Resp 17 S; Pulse Ox 100% ; ha1 21:01 Body Mass Index 21.40 (86.18 kg, 200.66 cm) pf1 21:01 Pain Scale: Adult pf1 MDM: 21:06 Patient medically screened. cande 22:27 Differential diagnosis: arthritis, strain, sciatica, contusion, Herniated disc. Data [facility] reviewed: vital signs, nurses notes, radiologic studies, plain films. Consideration of Admission/Observation Escalation of care including admission/observation considered. I considered the following discharge prescriptions or medication management in the emergency department Medications were administered in the Emergency Department. See MAR. Independent interpretation of the following test(s) in the Emergency Department X-Ray: My interpretation is lumbar, pelvis. Test considered but Not performed: Labs: no labs. Historians other than the Patient: patient well in formed. Care significantly affected by the following chronic conditions: none. 08/07 22:13 Order name: Pelvis Wo Cont CT cande 08/07 22:13 Order name: Lumbar Spine (3 Views) XRAY cande Administered Medications: 22:42 Drug: Ibuprofen PO 600 mg PO once Route: PO; ha1 22:42 Drug: [place] PO 10 mg-325 mg 1 tabs PO once Route: PO; ha1 Disposition Summary: 08/08/23 23:39 Discharge Ordered Notes: Location: Home cande Problem: new cande Symptoms: have improved cande Condition: Stable cande Diagnosis - Unspecified symptoms and signs involving the musculoskeletal system cande Followup: cande - With: Private Physician - When: 2 - 3 days - Reason: Recheck today's complaints, Continuance of care, Re-evaluation by your physician Discharge Instructions: - Discharge Summary Sheet cande - Musculoskeletal Pain [facility] Forms: - Medication Reconciliation Form [facility] - Antibiotic Education cande - Prescription Opioid Use cande - Patient Portal Instructions [facility] - Leadership Thank You Letter [facility] Prescriptions: - Ibuprofen 600 mg Oral Tablet - take 1 tablet ORAL route every 6 hours As needed take with food; 30 tablet; [facility] Refills: 0, Product Selection Permitted - Medrol (Jaya) 4 mg Oral Tablets, Dose Pack - take 1 tablet ORAL route as directed - follow package instructions; 1 packet; [facility] Refills: 0, Product Selection Permitted - Cyclobenzaprine 5 mg Oral Tablet - take 1 tablet ORAL route 3 times per day As needed; 15 tablet; Refills: 0, [facility] Product Selection Permitted Signatures: Dispatcher [employer] Silvio Arias MD MD cha Ayala, Heidy RN RN ha1 Mayte Aparicio RN RN pf1 Corrections: (The following items were deleted from the chart) 22:13 22:13 Lumbar Spine 3 Views+[email or web address] ordered. [facility] EDMS
[2023-08-08 23:52] VITALS: TEMP 97.5
[2023-08-09 00:40] VITALS: BP 142/74; O2SAT 100
--- NOTE | 2023-08-09 16:47 | RAD REPORT ---
EXAM DESCRIPTION: RAD - Lumbar Spine 3 Views - 08/08/2023 10:52 pm CLINICAL HISTORY: 58 years, Male, PAIN COMPARISON: None FINDINGS: 3 X-ray views of the lumbar spine (frontal, lateral and coned-down views) were performed. The bones are mildly demineralized. There is normal anatomic alignment of the lumbar vertebral bodies. There is anterior spondylosis L3-L 5. The adjacent soft tissues are unremarkable. There is no evidence for fracture or subluxation. There is no evidence for spondylolisthesis. The facet joints demonstrate posterior facet hypertroph y at L3-S1. IMPRESSION: Mild spondylosis L3-S1. No evidence for fracture and/or subluxation. Electronically signed by: Grabiel Portillo MD 08/08/2023 11:12 PM CDT Due to temporary technical issues with the PACS/Fluency reporting system, reports are being signed by the in house radiologists without review as a courtesy to insure prompt reporting. The interpreting radiologist is fully responsible for the content of the report.
--- NOTE | 2023-08-09 16:48 | RAD REPORT ---
EXAM DESCRIPTION: CT - Pelvis Wo Cont - 08/09/2023 7:25 am CLINICAL HISTORY: 58 years, Male, PAIN COMPARISON: None FINDINGS: Multiple transaxial tomograms of the pelvis were obtained utilizing 2 mm slight thickness at 2 mm interval reconstruction without the administration of IV contrast. Subsequent to the 3-D multiplanar reformats were generated for subsequent interpretation. An individualized dose optimization technique, Automated Exposure Control, was utilized for the perfo rmed procedure. Several of the images are compromised by motion artifact limiting diagnostic value. The visualized portions of the large and small bowel demonstrate to be within normal limits. Visualiz ed portions of the appendix demonstrate to be within normal limits : The urinary bladder demonstrate to be unremarkable. Genitalia: The prostate gland is normal. The distal portion of the abdominal aorta and iliac arteries demonstrate to be within normal limits. There is no evidence for pelvic ascites and/or pelvic lymphadenopathy. Small left inguinal hernia containing omentum. The bone windows demonstrate to be within normal limits. No evidence for acute bony injuries. The visualized portions of the lower lumbar spine demonstrate to be unremarkable. Sacrum demonstrate to be intact. Minimal heterotopic perihepatic opacification is identified within t he posterior aspect iliac bone at the region of the gluteus muscle. Iliac bones, superior and inferior pubic ramus as well as bilateral hip joints demonstrate to be with in normal limits. IMPRESSION: Several of the images are compromised by motion artifact limiting diagnostic value. No evidence for acute bony injuries. Small left inguinal hernia containing omentum. Electronically signed by: Grabiel Portillo MD 08/08/2023 11:26 PM CDT Due to temporary technical issues with the PACS/Fluency reporting system, reports are being signed by the in house radiologists without review as a courtesy to insure prompt reporting. The interpreting radiologist is fully responsible for the content of the report.
== END 2023-08-08 23:46 | disposition home or self-care (01) ==
LOC: ER 20:54
DX: R29.91 Unspecified symptoms and signs involving the musculoskeletal system (principal)
CPT/HCPCS: 72100; 72192; 99283